=== PATIENT | female | born 1950 | race Two or more races ===

== ENCOUNTER 2018-05-09 22:41 | Emergency (ER) | payer OTHER ==
[~2018-05-09] VITALS: Ht 157.5 cm; Wt 71.7 kg
[2018-05-09 22:46] VITALS: BP 140/81
[2018-05-09] MEDS ORDERED: CYCLOBENZAPRINE 10 MG TABLET PO ONE (23:00)
[2018-05-09] MEDS ORDERED: HYDROCODONE/APAP 5/325MG 1 EACH TABLET PO ONE (23:00)
[2018-05-09] MEDS ORDERED: CYCLOBENZAPRINE 10 MG TABLET ONE (23:05)
[2018-05-09] MEDS ORDERED: HYDROCODONE/APAP 5/325MG 1 EACH TABLET ONE (23:05)
== END 2018-05-09 23:22 | disposition home or self-care (01) ==
LOC: ER 22:47
DX: M79.652 Pain in left thigh (principal); I10 Essential (primary) hypertension; I25.10 Atherosclerotic heart disease of native coronary artery without angina pectoris; E03.9 Hypothyroidism, unspecified; W01.0XXA Fall on same level from slipping, tripping and stumbling without subsequent striking against object, initial encounter; Y93.89 Activity, other specified; Y92.89 Other specified places as the place of occurrence of the external cause; Y99.8 Other external cause status
CPT/HCPCS: 99283; A4606